=== PATIENT | male | born 1990 | race Caucasian/White ===

== ENCOUNTER 2017-04-11 20:15 | Emergency (ER) | payer OTHER | END 2017-04-11 22:05 | disposition home or self-care (01) | LOC: FER 20:15 | DX: S69.92XA Unspecified injury of left wrist, hand and finger(s), initial encounter (principal); W21.09XA Struck by other hit or thrown ball, initial encounter; Y92.009 Unspecified place in unspecified non-institutional (private) residence as the place of occurrence of the external cause | CPT/HCPCS: 73130; 99283 ==